=== PATIENT | female | born 1975 | race Caucasian/White ===

== ENCOUNTER 2019-02-25 23:27 | Emergency (ER) | payer MEDICAID ==
[~2019-02-25] VITALS: Ht 157.5 cm; Wt 67.3 kg
[~2019-02-25 23:27] MED LIST: AZIT250T PO; NO HOME MEDS; OMEP20CA11 PO
--- NOTE | 2019-02-25 23:50 | NUR ---
Patient is laughing and joking and rolling about the bed with her child and appears to be in no acute distress.
--- NOTE | 2019-02-25 23:52 | NUR ---
PT LAYING ON HER BACK ON THE GURNEY LAUGHING AND ROLLING AROUND WITH A SMALL CHILD. NO ACUTE DISTRESS NOTED.
--- NOTE | 2019-02-26 00:05 | NUR ---
PT UP OUT OF BED TO BATHROOM FOR URINE SPECIMAN. ADVISED PT THAT SHE WILL BE GETTING AN IV FOR FLUIDS AND PAIN MEDICATION.
--- NOTE | 2019-02-26 00:19 | NUR ---
BARRON DEVRIES IN ROOM ASSESSING THE PT.
[2019-02-26] MEDS ORDERED: dexamethasone sod phosphate 10mg/ml inj IV STA (00:33)
[2019-02-26] MEDS ORDERED: ketorolac trometh. 30mg/ml inj. IV ONE (00:35)
[2019-02-26] MEDS ORDERED: metoclopramide 5 mg/ml inj IV ONE (00:35)
[2019-02-26] MEDS ORDERED: normal saline 1000ML IV soln IVB ONE (00:35)
--- NOTE | 2019-02-26 01:25 | NUR ---
LOOKED FOR PATIENT IN BATHROOMS AND AROUND UNIT . URINE SPECIMAN AT BEDSIDE SENT TO LAB. UNABLE TO FIND PATIENT . CHECKED WITH REGISTRATION TO SEE IF THEY SAW PATIENT EXIT UNIT BEFORE TX AND DISCHARGE. [facility] [employer] AT [facility] VERBALIZED SEEING [facility] OUT OF HOSPITAL. cHARGE NURSE NOTIFIED, BARRON CAO WAS NO LONGER ON UNIT.
[2019-02-26 01:40] VITALS: BP 105/63
== END 2019-02-26 01:25 | disposition home or self-care (01) ==
LOC: ER 23:28
DX: G43.909 Migraine, unspecified, not intractable, without status migrainosus (principal); F41.9 Anxiety disorder, unspecified; F32.9 Major depressive disorder, single episode, unspecified; F41.0 Panic disorder [episodic paroxysmal anxiety]; F12.90 Cannabis use, unspecified, uncomplicated; F15.90 Other stimulant use, unspecified, uncomplicated; F11.90 Opioid use, unspecified, uncomplicated; Z86.19 Personal history of other infectious and parasitic diseases; Z86.14 Personal history of Methicillin resistant Staphylococcus aureus infection; Z79.2 Long term (current) use of antibiotics; Z79.899 Other long term (current) drug therapy
CPT/HCPCS: 99283

== ENCOUNTER 2019-03-06 16:28 | Emergency (ER) | payer MEDICAID ==
[~2019-03-06] VITALS: Ht 157.5 cm; Wt 72.7 kg
[2019-03-06 16:33] VITALS: BP 136/73
[2019-03-06] MEDS ORDERED: ketorolac tromethamine 15mg/ml inj. IM ONE (18:00)
[2019-03-06] MEDS ORDERED: DICL100G15 TOP (18:10)
[2019-03-06] MEDS: orphenadrine citrate 60mg/2ml inj. IM ONE ×2 (18:21→18:33)
== END 2019-03-06 18:34 | disposition home or self-care (01) ==
LOC: ER 16:30
DX: S29.012A Strain of muscle and tendon of back wall of thorax, initial encounter (principal); G89.29 Other chronic pain; F41.9 Anxiety disorder, unspecified; F32.9 Major depressive disorder, single episode, unspecified; F41.0 Panic disorder [episodic paroxysmal anxiety]; F12.90 Cannabis use, unspecified, uncomplicated; F15.90 Other stimulant use, unspecified, uncomplicated; F14.90 Cocaine use, unspecified, uncomplicated; Z86.14 Personal history of Methicillin resistant Staphylococcus aureus infection; Z59.0 Homelessness; Z79.2 Long term (current) use of antibiotics; Z79.899 Other long term (current) drug therapy
CPT/HCPCS: 72070; 96372; 99284; J1885; J2360; 99283

== ENCOUNTER 2019-04-25 22:43 | Emergency (ER) | payer MEDICAID ==
[~2019-04-25] VITALS: Ht 157.5 cm; Wt 75.5 kg
[~2019-04-25 22:43] MED LIST changes: +DICL100G15 TOP
[2019-04-25 22:56] VITALS: BP 122/74
== END 2019-04-25 23:17 ==
LOC: ER 22:44
DX: F10.129 Alcohol abuse with intoxication, unspecified (principal); G89.29 Other chronic pain; F41.9 Anxiety disorder, unspecified; F32.9 Major depressive disorder, single episode, unspecified; F41.0 Panic disorder [episodic paroxysmal anxiety]; F12.90 Cannabis use, unspecified, uncomplicated; F11.90 Opioid use, unspecified, uncomplicated; F15.90 Other stimulant use, unspecified, uncomplicated; Z86.14 Personal history of Methicillin resistant Staphylococcus aureus infection; Z59.0 Homelessness; Z79.2 Long term (current) use of antibiotics; Z79.899 Other long term (current) drug therapy
CPT/HCPCS: 99283

== ENCOUNTER 2019-06-30 22:09 | Emergency (ER) | payer MEDICAID ==
[~2019-06-30] VITALS: Ht 160 cm; Wt 72.7 kg
[2019-06-30 22:22] VITALS: BP 125/82
[2019-06-30] MEDS ORDERED: benzonatate 100mg capsule PO ONE (22:55)
[2019-06-30] MEDS ORDERED: GUAI120L55 PO (23:01)
[2019-06-30] MEDS ORDERED: BENZ-16 PO (23:01)
== END 2019-06-30 23:09 | disposition home or self-care (01) ==
LOC: ER 22:10
DX: R05 Cough (principal); J00 Acute nasopharyngitis [common cold]; R51 Headache; R50.9 Fever, unspecified; R11.10 Vomiting, unspecified; G89.29 Other chronic pain; F41.9 Anxiety disorder, unspecified; F32.9 Major depressive disorder, single episode, unspecified; F17.200 Nicotine dependence, unspecified, uncomplicated; F10.99 Alcohol use, unspecified with unspecified alcohol-induced disorder; F12.90 Cannabis use, unspecified, uncomplicated; F15.90 Other stimulant use, unspecified, uncomplicated; F11.90 Opioid use, unspecified, uncomplicated; Z86.14 Personal history of Methicillin resistant Staphylococcus aureus infection; Z86.19 Personal history of other infectious and parasitic diseases; Z59.0 Homelessness; Z79.899 Other long term (current) drug therapy; Y90.9 Presence of alcohol in blood, level not specified
CPT/HCPCS: 93005; 99283

== ENCOUNTER 2019-08-23 19:54 | Emergency (ER) | payer MEDICAID ==
[~2019-08-23] VITALS: Ht 157.5 cm; Wt 68.0 kg
[~2019-08-23 19:54] MED LIST changes: +GUAI120L55 PO; -OMEP20CA11 PO; +OMEP20CA15 PO
[2019-08-23 20:01] VITALS: BP 150/97
--- NOTE | 2019-08-23 21:07 | NUR ---
MICHAEL WENT TO ROOM THE PATIENT AND SHE SAID SHE WAS JUST GETTING READY TO LEAVE. MICHAEL SAID HE ENCOURAGED HER TO STAY BUT SHE REFUSED AND LEFT.
== END 2019-08-23 21:08 | disposition left against medical advice (07) ==
LOC: ER 19:55
DX: N93.9 Abnormal uterine and vaginal bleeding, unspecified (principal); Z53.21 Procedure and treatment not carried out due to patient leaving prior to being seen by health care provider

== ENCOUNTER 2020-04-20 18:38 | Emergency (ER) | payer MEDICAID ==
[~2020-04-20] VITALS: Ht 157.5 cm; Wt 72.7 kg
[2020-04-20] MEDS ORDERED: dexamethasone 4mg tablet PO ONE (20:30)
[2020-04-20 20:40] LABS: CLARITY,URINE SLIGHTLY CLOUDY (Clear); COLOR,URINE YELLOW (Yellow); GLUCOSE, URINE NEGATIVE (Neg); KETONES,URINE NEGATIVE (Neg); LEUKOCYTE ESTERASE ,URINE NEGATIVE (Neg); NITRITES, URINE NEGATIVE (Neg); OCCULT BLOOD,URINE TRACE-INTACT (Neg); PH,URINE 5.5 (4.8-8.0); PROTEIN,URINE NEGATIVE (Neg); UROBILINOGEN,URINE 0.2 E.U/dL (0.2-1.0)
[2020-04-20 20:41] LABS: URINE HCG NEGATIVE (NEG)
[2020-04-20 20:43] LABS: UA COLLECTION TYPE CLN CATCH MIDSTREAM
[2020-04-20 20:45] LABS: BACTERIA,URINE 1+ /HPF (Neg); RBC,URINE 0-2 /HPF (0-2); SQUAMOUS EPITHELIAL CELL,UR MODERATE /LPF (FEW); WBC,URINE NONE SEEN /HPF (0-4)
[2020-04-20] MEDS ORDERED: ondansetron/PF 4mg/2ml inj IV ONE (22:10)
[2020-04-20] MEDS ORDERED: fentaNYL/PF 50MCG/1 ML 2ML syringe IV ONE (22:10)
[2020-04-20] MEDS ORDERED: LORazepam 2 mg/ml vial IV ONE (22:10)
[2020-04-20 23:24] VITALS: BP 150/100
--- NOTE | 2020-04-20 23:29 | NUR ---
Pt stated she could not wait to be transfered to [facility]. she needs a cigeratte and to get home to her 5 yr old who is autustic. Pt understood that her possible diagnosis could be a medical emergency. She needs an MRI immediately. She was educated by nurse and MD about risks of leaving. Pt decided to AMA
== END 2020-04-21 05:18 | disposition left against medical advice (07) ==
LOC: ER 18:39
DX: M54.41 Lumbago with sciatica, right side (principal); N39.498 Other specified urinary incontinence; G89.29 Other chronic pain; F41.9 Anxiety disorder, unspecified; F32.9 Major depressive disorder, single episode, unspecified; F12.90 Cannabis use, unspecified, uncomplicated; F15.90 Other stimulant use, unspecified, uncomplicated; F11.90 Opioid use, unspecified, uncomplicated; Z53.29 Procedure and treatment not carried out because of patient's decision for other reasons; Z86.19 Personal history of other infectious and parasitic diseases; Z87.440 Personal history of urinary (tract) infections; Z86.14 Personal history of Methicillin resistant Staphylococcus aureus infection; Z72.89 Other problems related to lifestyle; Z59.0 Homelessness; Z79.2 Long term (current) use of antibiotics; Z79.899 Other long term (current) drug therapy
CPT/HCPCS: 81001; 81025; 96374; 96375; 99284; J2060; J2405; J3010

== ENCOUNTER 2020-11-12 18:50 | Emergency (ER) | payer MEDICAID ==
[~2020-11-12] VITALS: Ht 157.5 cm; Wt 69.1 kg
[2020-11-12 18:52] VITALS: BP 149/120
== END 2020-11-12 19:56 | disposition left against medical advice (07) ==
LOC: ER 18:51
DX: M79.605 Pain in left leg (principal); Z53.21 Procedure and treatment not carried out due to patient leaving prior to being seen by health care provider

== ENCOUNTER 2021-01-10 13:03 | Emergency (ER) | payer MEDICAID ==
[~2021-01-10] VITALS: Ht 157.5 cm; Wt 65.6 kg
[2021-01-10 13:08] VITALS: BP 155/92
== END 2021-01-10 14:52 | disposition left against medical advice (07) ==
LOC: ER 13:04
DX: M54.9 Dorsalgia, unspecified (principal); Z53.21 Procedure and treatment not carried out due to patient leaving prior to being seen by health care provider

== ENCOUNTER 2021-11-01 14:38 | Emergency (ER) | payer MEDICAID ==
[~2021-11-01] VITALS: Ht 157.5 cm; Wt 56.0 kg
--- NOTE | 2021-11-01 15:45 | NUR ---
Pt arrived on unit at 1540 was escorted directly back from Triage to bed #23 Pt presents disorganizeda and slightly paranoid. Pt hesitantly changed into green scrubs and initially refused her asbestos abatement technician to draw her blood. Pt stated "I can't do this, I am scared." "I don't want to ." Pt was reassurred she was safe. Pt pacing by her bed. Pt denied suicidal thoughts "Yes I am okay." Pt administered PO Ativan 1mg. Will continue to monitor.
[2021-11-01] MEDS ORDERED: LORazepam 1 MG tablet PO ONE (16:05)
[2021-11-01 16:19] LABS: BASOPHILS # (AUTO) 0.1 X10'3 (0-0.2); BASOPHILS % (AUTO) 0.5 % (0-1); EOSINOPHILS % (AUTO) 0.2 % (0-6); HEMATOCRIT 40.3 % (35.0-45.0); HEMOGLOBIN 13.3 g/dl (12.0-16.0); LYMPHOCYTES # (AUTO) 2.1 X10'3 (1.1-4.8); LYMPHOCYTES % (AUTO) 18.7 % (21-51); MEAN CORPUSCULAR HEMOGLOBIN 28.3 PG (27.0-31.0); MEAN CORPUSCULAR HGB CONC 33.1 g/dL (33.0-36.5); MEAN CORPUSCULAR VOLUME 85.4 FL (78-98); MONOCYTES # (AUTO) 0.6 X10'3 (0-0.9); MONOCYTES % (AUTO) 5.6 % (2-12); NEUTROPHILS # (AUTO) 8.5 X10'3 (1.8-7.7); PLATELET COUNT 322 X10'3 (140-440); RED BLOOD COUNT 4.72 X10'6 (4.20-5.60); RED CELL DISTRIBUTION WIDTH 16.5 % (11.5-14.5); WHITE BLOOD COUNT 11.3 X10'3 (4.5-11.0)
[2021-11-01 16:25] LABS: URINE HCG NEGATIVE (NEG)
[2021-11-01 16:27] LABS: CLARITY,URINE CLOUDY (Clear); COLOR,URINE YELLOW (Yellow); GLUCOSE, URINE NEGATIVE (Neg); KETONES,URINE NEGATIVE (Neg); LEUKOCYTE ESTERASE ,URINE NEGATIVE (Neg); NITRITES, URINE NEGATIVE (Neg); OCCULT BLOOD,URINE MODERATE (Neg); PROTEIN,URINE NEGATIVE (Neg); UROBILINOGEN,URINE 0.2 E.U/dL (0.2-1.0)
[2021-11-01 16:29] LABS: UA COLLECTION TYPE CLN CATCH MIDSTREAM
[2021-11-01 16:35] LABS: ALANINE AMINOTRANSFERASE 19 U/L (12-78); ALBUMIN 4.1 G/DL (3.4-5.0); ALBUMIN/GLOBULIN RATIO 1.2 (1.1-1.5); ALKALINE PHOSPHATASE 59 IU/L (46-116); ANION GAP 10 (8-16); ASPARTATE AMINO TRANSFERASE 17 U/L (10-37); BILIRUBIN,TOTAL 0.3 MG/DL (0.1-1.0); BLOOD UREA NITROGEN 10 MG/DL (7-18); BUN/CREATININE RATIO 13.2 (6.6-38.0); CALCIUM 9.1 MG/DL (8.5-10.1); CHLORIDE 104 MMOL/L (99-107); CREATININE 0.76 MG/DL (0.40-0.90); GLUCOSE 88 MG/DL (70-104); POTASSIUM 3.8 MMOL/L (3.5-5.1); SODIUM 141 MMOL/L (135-145); TOTAL CARBON DIOXIDE 26.9 MMOL/L (24-32); TOTAL PROTEIN 7.5 G/DL (6.4-8.2); eGFR 82 ML/MIN
[2021-11-01 16:36] LABS: CAL OXALATE CRYSTALS 2+ /HPF (NEGATIVE); SQUAMOUS EPITHELIAL CELL,UR MANY /LPF (FEW)
[2021-11-01 16:38] LABS: BACTERIA,URINE 1+ /HPF (Neg)
[2021-11-01 16:40] LABS: AMORPHOUS PHOSPHATES 2+; URINE AMPHETAMINE SCREEN NEGATIVE (Neg); URINE BARBITUATE SCREEN NEGATIVE (Neg); URINE BENZODIAZEPINES SCREEN NEGATIVE (Neg); URINE CANNABINOID SCREEN POSITIVE (Neg); URINE COCAINE SCREEN NEGATIVE (Neg); URINE METHADONE SCREEN NEGATIVE (Neg); URINE OPIATE SCREEN NEGATIVE (Neg); URINE PHENCYCLIDINE SCREEN NEGATIVE (Neg)
--- NOTE | 2021-11-01 16:41 | NUR ---
Pt quietly lying in bed with eyes open. Pt is in LOS of nurses station.
--- NOTE | 2021-11-01 16:46 | NUR ---
Laboratory gave lab results to CARLEY Rogers: Urine was rejected for culture. Some blood noted. Pt denies any symptoms states she just finished her menstral cycle. Will continue to monitor.
[2021-11-01 17:43] VITALS: BP 142/75
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
[2021-11-01] MEDS ORDERED: BUPR-94 PO (19:27)
[2021-11-01] MEDS ORDERED: HYDR-3686 PO (19:27)
[2021-11-01] MEDS ORDERED: ALPR-385 PO (19:27)
[2021-11-01] MEDS ORDERED: CYCL-394 PO (19:27)
[2021-11-01] MEDS ORDERED: GABA800T11 PO (19:27)
[2021-11-01] MEDS ORDERED: BUPR1FIL3 SL (19:27)
[2021-11-01] MEDS ORDERED: hydrOXYzine 25 MG tablet PO PRN (19:40)
[2021-11-01] MEDS ORDERED: NICOTINE POLACRILEX 2 MG LOZENGE BC PRN (19:40)
[2021-11-01] MEDS: buprenorphine/naloxone 8MG-2MG SUBlingual film SL SCH (19:51)
[2021-11-01] MEDS: ALPRAZolam 0.5mg tablet PO SCH (19:51)
[2021-11-01] MEDS: gabapentin 400mg capsule PO SCH (19:51)
[2021-11-01] MEDS ORDERED: cyclobenzaprine 10mg tablet PO PRN (20:15)
--- NOTE | 2021-11-01 20:20 | NUR ---
The patient is resting on her bed. At one point approached the nursing station and stated she had plans to write a book and began explaining a bizarre subject but then abruptly stopped talking about it and went to lay back on her bed.
--- NOTE | 2021-11-01 21:08 | NUR ---
The patient is on the phone saying judy to her family
--- NOTE | 2021-11-01 21:31 | NUR ---
The patient is easily agitated when given requests or redirected. Her mood is labile. She is encouraged to rest and try to sleep.
--- NOTE | 2021-11-01 21:59 | NUR ---
The patient is up to use the bathroom
--- NOTE | 2021-11-01 22:31 | NUR ---
The patient is tearful, she was pacing. She stated that she wants to go home. She is trying to cooperate. She is having racing thoughts. Mood remains very labile
--- NOTE | 2021-11-01 22:39 | NUR ---
Patient presentation discussed with Shannan LEE and orders received
[2021-11-01] MEDS ORDERED: OLANZapine 5mg rapidly disint. tablet PO ONE (22:40)
--- NOTE | 2021-11-01 23:49 | NUR ---
The patient appears to be sleeping
[2021-11-02] MEDS ORDERED: cyclobenzaprine 10mg tablet PO SCH
--- NOTE | 2021-11-02 01:26 | NUR ---
The patient currently appears to be sleeping but has periodically up and then back to bed
--- NOTE | 2021-11-02 02:26 | NUR ---
The patient appears to be sleeping
--- NOTE | 2021-11-02 04:23 | NUR ---
The patient appears to be sleeping
--- NOTE | 2021-11-02 05:36 | NUR ---
The patient currently appears to be sleeping but she was awake off and on during the night
--- NOTE | 2021-11-02 06:30 | NUR ---
Pt. in her bed and appears to be sleeping. no distress noted.
[2021-11-02] MEDS ORDERED: buPROPion SR 150mg tablet PO SCH (08:00)
[2021-11-02] MEDS: gabapentin 400mg capsule PO SCH ×2 (08:05→12:15)
[2021-11-02] MEDS: ALPRAZolam 0.5mg tablet PO SCH (08:05)
[2021-11-02] MEDS: buprenorphine/naloxone 8MG-2MG SUBlingual film SL SCH ×2 (08:05→13:31)
--- NOTE | 2021-11-02 08:32 | NUR ---
Pt. awake talking to [facility] worker at the bedside. No distress noted.
--- NOTE | 2021-11-02 09:25 | NUR ---
Pt. tearful, pacing, and requesting " just give my stuff."Pt. presents with increased agitation PRN Atarax offered; pt. refused. Foam Molder provided active listening and encouraged her to rest. PRN Atarax offered ; pt. accepted. She is currently in bed attempting to use the phone.
--- NOTE | 2021-11-02 09:49 | NUR ---
Met with patient in regards to substance/alcohol use and to see if patient wanted resources for treatment options. Patient would like to go to an inpatient rehab. Patient is interested in [facility]. I printed patient an application to fill out. I also gave patient my card to call me with any questions.
--- NOTE | 2021-11-02 10:00 | NUR ---
Pt. pacing and seeking exit door "I want the damn exit, Im getting out of here" Security was paged for safety. Pt. was able to be descalated and returned to her room, and security was cancelled.
--- NOTE | 2021-11-02 11:45 | NUR ---
Pt. in her bed working on paperwork, no distress noted.
--- NOTE | 2021-11-02 12:09 | NUR ---
Patient pacing around her bed, "I finished this paperwork I want out now." Rubber Stamp Assembler again explained the DCP. Pt continues to elevated. Received order for PO Zyprexa 10 mg. Will contine to monitor.
[2021-11-02] MEDS ORDERED: olanzapine 10mg tablet PO ONE (12:10)
--- NOTE | 2021-11-02 12:20 | NUR ---
Pt took Zyprexa without issue.
--- NOTE | 2021-11-02 13:37 | NUR ---
Pt. OOB agitated, demanding to go home, and threats to elope. Security called. Routine Suboxone given.
--- NOTE | 2021-11-02 15:30 | NUR ---
Pt. awake, sitting on her bed with hospital staff, no s/sx of distress noted.
--- NOTE | 2021-11-02 16:28 | NUR ---
Pt. standing next to her bed, crying, and awaiting her daughters arrival. Pt. has been safety planned and estimated DC at 1700.
--- NOTE | 2021-11-02 16:40 | NUR ---
Recieved phone call from pt.s daughter, she is running late and will be here at 1800. Pt. spoke to her on the phone; she is labile, crying.
== END 2021-11-02 18:17 | disposition home or self-care (01) ==
LOC: ER 14:39 → MERGE 14:39 → ER 15:21
DX: F60.3 Borderline personality disorder (principal); R45.851 Suicidal ideations; F10.20 Alcohol dependence, uncomplicated; R11.0 Nausea; F31.9 Bipolar disorder, unspecified; Z87.440 Personal history of urinary (tract) infections; Z72.89 Other problems related to lifestyle; Z79.899 Other long term (current) drug therapy; Y90.9 Presence of alcohol in blood, level not specified
CPT/HCPCS: 36415; 80053; 80305; 81001; 81025; 84443; 85025; 99285; Q0177

== ENCOUNTER 2022-04-19 01:23 | Emergency (ER) | payer MEDICAID ==
[~2022-04-19] VITALS: Ht 157.5 cm; Wt 54.5 kg
[~2022-04-19 01:23] MED LIST changes: +ALPR-385 PO; +BUPR-94 PO; +BUPR1FIL3 SL; +CYCL-394 PO; +GABA800T11 PO; +HYDR-3686 PO
[2022-04-19 01:58] LABS: CLARITY,URINE CLEAR (Clear); COLOR,URINE YELLOW (Yellow); GLUCOSE, URINE NEGATIVE (Neg); KETONES,URINE NEGATIVE (Neg); LEUKOCYTE ESTERASE ,URINE NEGATIVE (Neg); NITRITES, URINE NEGATIVE (Neg); OCCULT BLOOD,URINE TRACE-INTACT (Neg); PH,URINE 5.5 (4.8-8.0); PROTEIN,URINE NEGATIVE (Neg); UROBILINOGEN,URINE 0.2 E.U/dL (0.2-1.0)
[2022-04-19 02:00] LABS: UA COLLECTION TYPE CLN CATCH MIDSTREAM
[2022-04-19 02:04] LABS: BACTERIA,URINE FEW /HPF (Neg); RBC,URINE 0-2 /HPF (0-2); WBC,URINE 0-4 /HPF (0-4)
[2022-04-19 02:05] LABS: MUCUS STRANDS MODERATE /LPF (Neg); SQUAMOUS EPITHELIAL CELL,UR FEW /LPF (FEW); TRANSITIONAL EPI CELLS,URINE FEW /HPF
[2022-04-19 02:08] VITALS: BP 140/86
[2022-04-19 02:12] LABS: URINE AMPHETAMINE SCREEN POSITIVE (Neg); URINE BARBITUATE SCREEN NEGATIVE (Neg); URINE BENZODIAZEPINES SCREEN NEGATIVE (Neg); URINE CANNABINOID SCREEN NEGATIVE (Neg); URINE COCAINE SCREEN NEGATIVE (Neg); URINE METHADONE SCREEN POSITIVE (Neg); URINE OPIATE SCREEN NEGATIVE (Neg); URINE PHENCYCLIDINE SCREEN NEGATIVE (Neg)
--- NOTE | 2022-04-19 03:06 | NUR ---
PT LEFT AMA BEFORE GENERAL ASSESSMENT COMPLETED
== END 2022-04-19 03:08 | disposition left against medical advice (07) ==
LOC: ER 01:23
DX: T40.491A Poisoning by other synthetic narcotics, accidental (unintentional), initial encounter (principal); G89.29 Other chronic pain; F41.9 Anxiety disorder, unspecified; F32.A Depression, unspecified; F17.200 Nicotine dependence, unspecified, uncomplicated; F12.90 Cannabis use, unspecified, uncomplicated; F15.90 Other stimulant use, unspecified, uncomplicated; F11.90 Opioid use, unspecified, uncomplicated; Z86.19 Personal history of other infectious and parasitic diseases; Z87.440 Personal history of urinary (tract) infections; Z86.14 Personal history of Methicillin resistant Staphylococcus aureus infection; Z72.89 Other problems related to lifestyle; Z59.00 Homelessness unspecified; Z79.2 Long term (current) use of antibiotics; Z79.899 Other long term (current) drug therapy; Y92.89 Other specified places as the place of occurrence of the external cause
CPT/HCPCS: 80305; 81001; 93005; 99284

== ENCOUNTER 2022-08-19 19:03 | Emergency (ER) | payer MEDICAID ==
[~2022-08-19] VITALS: Ht 162.6 cm; Wt 54.5 kg
[2022-08-19 19:20] VITALS: BP 144/105
== END 2022-08-19 20:43 | disposition home or self-care (01) ==
LOC: ER 19:04
DX: F41.9 Anxiety disorder, unspecified (principal); R05.9 Cough, unspecified; G89.29 Other chronic pain; M54.50 Low back pain, unspecified; F12.90 Cannabis use, unspecified, uncomplicated; F15.20 Other stimulant dependence, uncomplicated; Z59.00 Homelessness unspecified
CPT/HCPCS: 71045; 93005; 99283

== ENCOUNTER 2023-09-13 19:26 | Emergency (ER) | payer MEDICAID ==
[~2023-09-13] VITALS: Ht 157.5 cm; Wt 70.0 kg
[2023-09-13 19:33] VITALS: BP 131/94; PULSE 95; RESP 16; TEMP 98.2; O2SAT 95
[2023-09-13 20:15] LABS: BASOPHILS % (AUTO) 0.5 % (0-1); EOSINOPHILS % (AUTO) 0.1 % (0-6); HEMATOCRIT 31.8 % (35.0-45.0); HEMOGLOBIN 10.4 g/dl (12.0-16.0); LYMPHOCYTES # (AUTO) 1.5 X10'3 (1.1-4.8); LYMPHOCYTES % (AUTO) 17.6 % (21-51); MEAN CORPUSCULAR HGB CONC 32.7 g/dL (33.0-36.5); MEAN CORPUSCULAR VOLUME 79.5 FL (78-98); MEAN PLATELET VOLUME 7.7 FL (7.4-10.4); MONOCYTES # (AUTO) 0.6 X10'3 (0-0.9); MONOCYTES % (AUTO) 6.7 % (2-12); NEUTROPHILS # (AUTO) 6.5 X10'3 (1.8-7.7); NEUTROPHILS % (AUTO) 75.1 % (42-75); PLATELET COUNT 223 X10'3 (140-440); RED BLOOD COUNT 4.01 X10'6 (4.20-5.60); WHITE BLOOD COUNT 8.7 X10'3 (4.5-11.0)
[2023-09-13 20:37] LABS: ALBUMIN 3.4 G/DL (3.4-5.0); ANION GAP 12 (8-16); BLOOD UREA NITROGEN 10 MG/DL (7-18); BUN/CREATININE RATIO 9.7 (10.0-20.0); CALCIUM 8.6 MG/DL (8.5-10.1); CHLORIDE 97 MMOL/L (99-107); CREATININE 1.03 MG/DL (0.40-0.90); GLUCOSE 118 MG/DL (70-104); POTASSIUM 3.4 MMOL/L (3.5-5.1); PRO BRAIN NATRIURETIC PEPTIDE 62 PG/ML (0-125); SODIUM 136 MMOL/L (135-145); TOTAL CARBON DIOXIDE 27.1 MMOL/L (24-32); eCRCL 53 ML/MIN; eGFR 57 ML/MIN
[2023-09-13 21:18] LABS: ANISOCYTOSIS 2+; ELLIPTOCYTES FEW; MICROCYTOSIS 1+; PLATELET ESTIMATE NORMAL
== END 2023-09-13 22:01 | disposition left against medical advice (07) ==
LOC: ER 19:27
DX: R06.02 Shortness of breath (principal); Z53.21 Procedure and treatment not carried out due to patient leaving prior to being seen by health care provider
CPT/HCPCS: 36415; 71045; 80048; 83880; 84484; 85008; 85025; 93005; 99281

== ENCOUNTER 2024-12-12 13:40 | Emergency (ER) | payer MEDICAID ==
[~2024-12-12] VITALS: Ht 157.5 cm; Wt 74.9 kg
[~2024-12-12 13:40] MED LIST changes: +GABA-1555 PO; -GABA800T11 PO
[2024-12-12 13:44] VITALS: PULSE 112; RESP 15; TEMP 96.7; O2SAT 96
[2024-12-12] MEDS ORDERED: AMOX875T10 PO (15:13)
[2024-12-12] MEDS ORDERED: IBUP-1986 PO (15:13)
--- NOTE | 2024-12-12 15:16 | Physician Documentation ---
HPI ~ General Chief Complaint: Tooth Problem Stated Complaint: TOOTH INFECTION Time Seen by MD: 14:32 Primary Medical Doctor: [facility] Source: patient, RN/MD History of Present Illness HPI Comment The patient is seen today with complaints of dental pain in the left upper jaw. Patient states she has history of significant dental problems and infections. Patient denies any fevers or chills or chest pain or shortness of breath or abdominal pain or nausea, vomiting, diarrhea. Patient has no other concern or complaint at this time. Medication Reconciliation Allergies: Coded Allergies: No Known Allergies (Unverified , 04/20/20) Scheduled Alprazolam (Alprazolam), 1 TAB PO Q12H, (Reported) Azithromycin (Zithromax), 1 DOSPAK PO UD Buprenorphine Hcl/Naloxone Hcl (Suboxone 8 Mg-2 Mg Sl Film), 1 EACH SL TID, (Reported) Bupropion Hcl (Wellbutrin Xl), 1 TAB PO DAILY, (Reported) Cyclobenzaprine HCl (Cyclobenzaprine HCl), 1 TAB PO Q8H, (Reported) Diclofenac Sodium (Voltaren), 1 GM TOP Q6H Gabapentin (Gabapentin), 1 TAB PO TID, (Reported) Guaifenesin/Codeine Phosphate (Codeine-Guaifen 10-100 mg/5 ml), 10 ML PO TID Omeprazole (Omeprazole), 1 CAP PO DAILY Scheduled PRN Hydroxyzine Hcl* (Atarax*), 1 TAB PO Q8H PRN for for anxiety/agitation, (Reported) Miscellaneous Medications Home Med List (No Home Medications), (Reported) Past Medical History Past Medical History: Hepatitis C, UTI, Chronic Pain, Chronic Back Pain, MRSA Abscess, Anxiety, Depression, Panic Disorder Past Surgical History: no surgical history Alcohol Use: Sober Drug Use: marijuana, methamphetamine, heroin Lives with: Family Lives In: Homeless Review of Systems Constitutional: Denies: chills, fever, weakness Eyes: Denies: pain, blurred vision ENT: Denies: ear pain, nose pain, throat pain, mouth pain Respiratory: Denies: cough, shortness of breath Cardiovascular: Denies: chest pain, palpitations Gastrointestinal: Denies: abdominal pain, nausea, vomiting Genitourinary: Denies: burning, dysuria Female Genitalia: Denies: vaginal discharge, pelvic pain Neurological: Denies: headache, dizziness Musculoskeletal: Denies: pain, swelling Integumentary: Denies: rash, lesions Allergic/Immunologic: Denies: hives, itching Hematologic/Lymphatic: Denies: no symptoms reported Psychiatric: Denies: depression, anxiety Physical Exam Vital Signs: Temperature: 96.7, Source: Temporal, Heart Rate: 112, Respiratory Rate: 15, Pulse Oximetry: 96, Weight: 74.900 Physical Exam General: Awake and Alert, no acute distress. HEENT: Patient on exam does have swelling of the left upper jaw/maxillary area. Patient has multiple missing and dental caries and for dental fractures. Conjunctiva pink, Sclera clear, Mucus Membranes moist. Neck: Supple without masses and tenderness. Resp: Unlabored. Lungs clear to auscultation bilaterally. Heart: Regular Rate and rhythm, normal S1 and S2 without murmur, rub or gallop. Abdomen: Soft and non tender no organomegaly Extremities: No cyanosis,clubbing or edema. Skin: Warm and Dry. Progress Results/Orders Results/Orders Vital Signs 12/12/24 13:44 Temp 96.7 Pulse 112 Resp 15 Pulse Ox 96 Medical Decision Making Findings The patient is seen today with complaints of dental pain in the left upper jaw. Patient states she has history of significant dental problems and infections. Patient denies any fevers or chills or chest pain or shortness of breath or abdominal pain or nausea, vomiting, diarrhea. Patient has no other concern or complaint at this time. Patient was given dose of amoxicillin a 1000 mg in the ED today along with ibuprofen 800 mg and Tylenol 975 mg by mouth in the ED today. Prescription of amoxicillin 875 mg, one tab twice a day by mouth sent to patient pharmacy along with ibuprofen 800 mg one tab by mouth every 8 hours as needed for pain. Patient may also take Tylenol with this. Return to ED with any worsening, concerning or changing symptoms. Patient will follow up with dentist as soon as possible. Departure Disposition: 01 HOME / SELF CARE / HOMELESS Impression: Primary Impression: Dental abscess Condition: Improved Discharge Instructions: Dental Abscess Additional Instructions: Patient was given dose of amoxicillin a 1000 mg in the ED today along with ibuprofen 800 mg and Tylenol 975 mg by mouth in the ED today. Prescription of amoxicillin 875 mg, one tab twice a day by mouth sent to patient pharmacy along with ibuprofen 800 mg one tab by mouth every 8 hours as needed for pain. Patient may also take Tylenol with this. Return to ED with any worsening, concerning or changing symptoms. Patient will follow up with dentist as soon as possible. Referrals: NO PRIMARY CARE PROVIDER (PCP) Prescriptions Ibuprofen (Ibuprofen) 800 Mg Tablet 1 TAB PO Q8H for pain for 10 Days, #30 TAB 0 Refills Prov: ABDOUL CASTELLANOS 12/12/24 Amoxicillin Trihydrate (Amoxicillin) 875 Mg Tablet 1 TAB PO Q12H for 10 Days, #20 TAB Prov: ABDOUL CASTELLANOS 12/12/24 Signature Scribe Signature: No scribe Attestation: No scribe ABDOUL CASTELLANOS December 12, 2024 15:16
[2024-12-12] MEDS: ibuprofen tablet 400 MG TABLET PO ONE (15:39)
[2024-12-12] MEDS: amoxicillin 250mg capsule PO STA (15:39)
[2024-12-12] MEDS: acetaminophen 325mg tablet PO STA (15:40)
== END 2024-12-12 15:42 | disposition home or self-care (01) ==
LOC: ER 13:41
DX: K04.7 Periapical abscess without sinus (principal); F41.9 Anxiety disorder, unspecified; F32.A Depression, unspecified; F41.0 Panic disorder [episodic paroxysmal anxiety]; F12.90 Cannabis use, unspecified, uncomplicated; F15.90 Other stimulant use, unspecified, uncomplicated; F11.90 Opioid use, unspecified, uncomplicated; Z59.00 Homelessness unspecified; Z79.899 Other long term (current) drug therapy
CPT/HCPCS: 99283